=== PATIENT | male | born 1975 | race Two or more races ===

== ENCOUNTER 2021-02-02 13:40 | Outpatient (REF) | payer SELFPAY ==
--- NOTE | ~2021-02-02 | XR_ITS ---
EXAMINATION: XR SHOULDER, RIGHT CLINICAL INFORMATION: Right shoulder pain. COMPARISON: None. TECHNIQUE: AP, Grashey, and axillary Y views of the right shoulder. FINDINGS: No acute fracture or dislocation. No joint space narrowing or marginal osteophytes. No osseous erosion. Lobulated calcification within the distal supraspinatus tendon measuring up to 2.3 cm in ML dimension and consistent with calcific tendinitis. XR/XR shoulder RT min 2V IMPRESSION: Supraspinatus calcific tendinitis.
== END 2021-02-02 13:41 | disposition home or self-care (01) ==
LOC: HO.HMGCX 13:40
PROVIDERS: Visit Provider Physician Assistant
DX: M25.511 Pain in right shoulder (principal)
CPT/HCPCS: 73030